=== PATIENT | female | born 1975 | race Caucasian/White ===

== ENCOUNTER 2017-08-12 10:30 | Emergency (ER) | payer MEDICAID ==
--- NOTE | 2017-08-12 11:37 | EDM.PDOC ---
ED HPI GENERAL MEDICAL PROBLEM - General Chief Complaint: Respiratory Problem Stated Complaint: SOB Time Seen by Provider: 08/12/17 11:10 Source of Information: Reports: Patient, Family History Limitations: Reports: No Limitations - History of Present Illness INITIAL COMMENTS - FREE TEXT/NARRATIVE: 41-year-old female, otherwise healthy has developed left upper chest discomfort and back discomfort for the past 4 days. She's also developed a cough that has been productive. No significant fevers or chills. Pain is very pleuritic in nature, some shortness of breath with activity. Onset: Gradual (Over the past 5 days) Location: Reports: Chest, Back Severity: Moderate Associated Symptoms: Reports: Shortness of Breath. Denies: Fever/Chills - Related Data Allergies Allergy/AdvReac Type Severity Reaction Status Date / Time Sulfa (Sulfonamide Allergy Hives Verified 08/12/17 11:05 Antibiotics) Home Meds: Home Meds NK [No Known Home Meds] 02/25/14 [History] Past Medical History - Past Surgical History Female Surgical History: Reports: Section, Hysterectomy Social & Family History - Tobacco Use Smoking Status *Q: Current Some Day Smoker Years of Tobacco use: 15 Packs/Tins Daily: 0.1 ED ROS GENERAL - Review of Systems Review Of Systems: See Below Constitutional: Reports: Malaise. Denies: Fever, Chills Respiratory: Reports: Shortness of Breath, Cough, Sputum, Hemoptysis Cardiovascular: Reports: Chest Pain GI/Abdominal: Denies: Nausea, Vomiting Musculoskeletal: Reports: Back Pain Skin: Reports: No Symptoms Neurological: Reports: No Symptoms ED EXAM, GENERAL - Physical Exam Exam: See Below Exam Limited By: No Limitations General Appearance: Alert, No Apparent Distress Neck: Normal Inspection Respiratory/Chest: No Respiratory Distress, Lungs Clear Cardiovascular: Regular Rate, Rhythm GI/Abdominal: Soft, Non-Tender Extremities: Normal Inspection. No: Pedal Edema Neurological: Alert, Oriented Skin Exam: Warm, Dry Course - Vital Signs Last Recorded V/S: Last Vital Signs Temp 98.3 F 08/12/17 11:12 Pulse 84 08/12/17 11:12 Resp 21 H 08/12/17 11:12 BP 140/92 H 08/12/17 11:12 Pulse Ox 94 L 08/12/17 11:12 - Orders/Labs/Meds Orders: Active Orders 24 hr Category Date Time Status Chest 2V [CR] Stat Exams 08/12/17 11:27 Taken Labs: Laboratory Tests 08/12/17 08/12/17 08/12/17 Range/Units 11:38 11:38 11:38 WBC 12.5 H (4.5-11.0) K/uL RBC 3.75 (3.30-5.50) M/uL Hgb 11.9 L (12.0-15.0) g/dL Hct 35.6 L (36.0-48.0) % MCV 95 (80-98) fL MCH 32 H (27-31) pg MCHC 33 (32-36) % Plt Count 244 (150-400) K/uL Neut % (Auto) 78 H (36-66) % Lymph % (Auto) 13 L (24-44) % [place] % (Auto) 8 H (2-6) % Eos % (Auto) 1 L (2-4) % Baso % (Auto) 0 (0-1) % D-Dimer, Quantitative 401 H (0.0-400.0) ng/mL Sodium 137 L (140-148) mmol/L Potassium 3.8 (3.6-5.2) mmol/L Chloride 102 (100-108) mmol/L Carbon Dioxide 27 (21-32) mmol/L Anion Gap 11.8 (5.0-14.0) mmol/L BUN 18 (7-18) mg/dL Creatinine 0.9 (0.6-1.0) mg/dL Est Cr Clr Drug Dosing 76.23 mL/min Estimated GFR (MDRD) > 60 (>60) Glucose 98 (74-106) mg/dL Calcium 8.3 L (8.5-10.1) mg/dL - Re-Assessments/Exams Free Text/Narrative Re-Assessment/Exam: 08/12/17 11:41 Concerning that O2 saturations on room air are 94%, a d-dimer, CBC, CMP is obtained and a two-view chest x-ray. 08/12/17 12:21 White count was mildly elevated at 12,500, CMP otherwise normal. Chest x-ray did confirm a left upper lobe pneumonia, d-dimer was 401. Patient will be treated with daily Levaquin 500 mg for a minimum of 7 days, and will return if worsening at any time. Departure - Departure Time of Disposition: 12:37 Disposition: Home, Self-Care 01 Condition: Good Clinical Impression: Pneumonia Qualifiers: Pneumonia type: due to unspecified organism Laterality: left Lung location: upper lobe of lung Qualified Code(s): J18.1 - Lobar pneumonia, unspecified organism - Discharge Information Instructions: Community-Acquired Pneumonia, Adult, [id number] Referrals: Sarath Ramon MD [Primary Care Provider] - Forms: ED Department Discharge Care Plan Goals: Take one dose of antibiotic now, another this evening, and then one each morning for at least 7 days. Ibuprofen or naproxen should help with inflammation and add stronger pain medications if needed. Increase activity as tolerated and return if worsening despite treatment or consider recheck in 3-4 days if not improving satisfactorily. - My Orders Last 24 Hours: My Active Orders 08/12/17 11:27 Chest 2V [CR] Stat - Assessment/Plan Last 24 Hours: My Active Orders 08/12/17 11:27 Chest 2V [CR] Stat
--- NOTE | 2017-08-14 08:56 | CR ---
Findings: Hazy density within the lingula is indicative of pneumonia. Recommend radiographic follow-u p to resolution. Dense nodular opacity at the right fifth rib could be within the rib or a pulmonary nodule recommend comparison to old films or CT noncontrast chest to evaluate.
== END 2017-08-12 12:38 | disposition home or self-care (01) ==
LOC: JP.ED 10:30
DX: J18.9 Pneumonia, unspecified organism (principal); F17.210 Nicotine dependence, cigarettes, uncomplicated; Z88.2 Allergy status to sulfonamides
CPT/HCPCS: 36415; 71046; 71046-26; 80048; 85025; 85379; 99285